=== PATIENT | male | born 1970 | race Caucasian/White ===

== ENCOUNTER 2016-11-01 20:54 | Emergency (ER) | payer OTHER ==
[2016-11-01 22:21] VITALS: BP 133/74
== END 2016-11-01 22:22 | disposition home or self-care (01) ==
LOC: ED 20:54
DX: S93.401A Sprain of unspecified ligament of right ankle, initial encounter (principal); I10 Essential (primary) hypertension; X58.XXXA Exposure to other specified factors, initial encounter; Y99.8 Other external cause status; Y93.89 Activity, other specified; Y92.89 Other specified places as the place of occurrence of the external cause

== ENCOUNTER 2017-02-26 23:02 | Emergency (ER) | payer OTHER ==
[~2017-02-26] VITALS: Ht 180.3 cm; Wt 108.6 kg
[2017-02-27 00:31] LABS: BASOPHIL % 0.3 % (0-2); PLATELET COUNT 279 x10^3mcL (130-400); RED CELL DISTRIBUTION WIDTH 12.4 % (11.5-14.5)
[2017-02-27 00:43] LABS: CALCIUM 9.3 mg/dL (8.5-10.1); CARBON DIOXIDE 26.8 mmol/L (21-32); CHLORIDE SERUM 103 mmol/L (98-107); GFR1 > 60 mL/min; GLUCOSE SERUM 129 mg/dL (74-106); POTASSIUM SERUM 3.5 mmol/L (3.5-5.1); SODIUM SERUM 139 mmol/L (136-145)
[2017-02-27 00:47] LABS: ALBUMIN 3.4 g/dL (3.4-5.0); ALKALINE PHOSPHATASE 69 U/L (46-116); ALT/SGPT 45 U/L (16-63); AST/SGOT 30 U/L (15-37); BILIRUBIN TOTAL 0.5 mg/dL (0.20-1.00); TOTAL PROTEIN, SERUM 7.9 g/dL (6.4-8.2)
[2017-02-27 01:40] VITALS: BP 146/86
== END 2017-02-27 01:40 | disposition home or self-care (01) ==
LOC: ED 23:02
PROVIDERS: Emergency Medicine
DX: N20.0 Calculus of kidney (principal); I10 Essential (primary) hypertension
CPT/HCPCS: J1885; J7030

== ENCOUNTER 2017-03-06 01:16 | Emergency (ER) | payer OTHER ==
[2017-03-06 02:50] LABS: CALCIUM 9.4 mg/dL (8.5-10.1); CARBON DIOXIDE 27.7 mmol/L (21-32); CHLORIDE SERUM 103 mmol/L (98-107); CREATININE SERUM 1.3 mg/dL (0.7-1.3); GFR1 > 60 mL/min; GLUCOSE SERUM 129 mg/dL (74-106); SODIUM SERUM 138 mmol/L (136-145)
[2017-03-06 02:55] LABS: ALBUMIN 3.8 g/dL (3.4-5.0); ALKALINE PHOSPHATASE 62 U/L (46-116); ALT/SGPT 49 U/L (16-63); AST/SGOT 30 U/L (15-37); BILIRUBIN TOTAL 0.46 mg/dL (0.20-1.00)
[2017-03-06 03:09] LABS: BASOPHIL % 0.3 % (0-2); PLATELET COUNT 339 x10^3mcL (130-400); RED CELL DISTRIBUTION WIDTH 12.4 % (11.5-14.5)
[2017-03-06 03:55] VITALS: BP 155/86
== END 2017-03-06 03:55 | disposition home or self-care (01) ==
LOC: ED 01:16
PROVIDERS: Emergency Medicine
DX: N23 Unspecified renal colic (principal)
CPT/HCPCS: J1885; J7030